=== PATIENT | male | born 1990 | race African-American/Black ===

== ENCOUNTER 2019-02-02 16:47 | Emergency (ER) | payer OTHER ==
--- NOTE | 2019-02-02 18:59 | ER ---
Nurse's Notes [facility] Name: Sekou Adkins Age: 28 yrs Sex: Male : 1990 Arrival Date: 02/02/2019 Time: 16:49 Bed 28 Private MD: Diagnosis: Inhalation of paint fumes Presentation: 02/02 16:55 Presenting complaint: Patient states: I was spray painting in a garage with the door sg half opened, while wearing a mask designed for painting, I now have pressure in my forehead and pain when swallowing, I also feel very jittery, denies N/V/D/Fever at this time. Transition of care: patient was not received from another setting of care. Onset of symptoms was February 02, 2019. Risk Assessment: Do you want to hurt yourself or someone else? Patient reports no desire to harm self or others. Initial Sepsis Screen: Does the patient meet any 2 criteria? HR > 90 bpm. Does the patient have a suspected source of infection? No. Patient's initial sepsis screen is negative. Care prior to arrival: None. 16:55 Method Of Arrival: Ambulatory sg 16:55 Acuity: MAYLIN 3 sg Triage Assessment: 16:56 General: Appears in no apparent distress. well groomed, well developed, well nourished, sg Behavior is calm, cooperative, appropriate for age. Pain: Complains of pain in headache and sore throat that worsens with swallowing. Respiratory: Reports no symptoms reported at this time Airway is patent Respiratory effort is even, unlabored, Respiratory pattern is regular, symmetrical, Onset: The symptoms/episode began/occurred gradually, the patient has mild shortness of breath. Historical: - Allergies: 16:52 No Known Allergies; sg - PMHx: 16:52 Migraines; sg - PSHx: 16:52 None; sg - Immunization history:: Adult Immunizations up to date. - Social history:: Smoking status: Patient uses tobacco products, denies chronic smoking, but will smoke occasionally. - Ebola Screening: : Patient negative for fever greater than or equal to 101.5 degrees Fahrenheit, and additional compatible Ebola Virus Disease symptoms Patient denies exposure to infectious person Patient denies travel to an Ebola-affected area in the 21 days before illness onset No symptoms or risks identified at this time. Screenin:14 Abuse screen: Denies threats or abuse. Nutritional screening: No deficits noted. la1 Tuberculosis screening: No symptoms or risk factors identified. Fall Risk None identified. Assessment: 17:15 General: Appears in no apparent distress. Behavior is calm, cooperative. Pain: Denies la1 pain. Neuro: Level of Consciousness is awake, alert, obeys commands, Oriented to person, place, time, situation. Cardiovascular: Rhythm is regular. Respiratory: Airway is patent Respiratory effort is even, unlabored, Respiratory pattern is regular, symmetrical, Breath sounds are clear bilaterally. GI: No signs and/or symptoms were reported involving the gastrointestinal system. : No signs and/or symptoms were reported regarding the genitourinary system. 19:10 Reassessment: Patient appears in no apparent distress at this time. No changes from la1 previously documented assessment. Patient and/or family updated on plan of care and expected duration. Pain level reassessed. Patient is alert, oriented x 3, equal unlabored respirations, skin warm/dry/pink. Vital Signs: 16:52 BP 153 / 92; Pulse 113; Resp 18; Temp 97.2; Pulse Ox 100% on R/A; Weight 86.18 kg; sg Height 5 ft. 11 in. (180.34 cm); Pain 7/10; 18:51 BP 109 / 62; Pulse 102 RA; Pulse Ox 100% ; jp3 16:52 Body Mass Index 26.50 (86.18 kg, 180.34 cm) ED Course: 16:49 Patient arrived in ED. as 16:52 Arm band placed on. sg 16:56 Triage completed. sg 17:08 Jake Olivera, GINGER is Primary Nurse. la1 17:11 Cheo Parker NP is PHCP. pm1 17:11 Rell Kat MD is Attending Physician. pm1 17:15 Call light in reach. la1 19:10 No provider procedures requiring assistance completed. Patient did not have IV access la1 during this emergency room visit. Administered Medications: 19:09 Drug: Tylenol 1000 mg Route: PO; la1 Outcome: 18:58 Discharge ordered by . pm1 19:10 Discharged to home ambulatory. la1 19:10 Condition: stable 19:10 Discharge instructions given to patient, Instructed on discharge instructions, follow up and referral plans. medication usage, Demonstrated understanding of instructions, follow-up care. 19:11 Patient left the ED. la1 Signatures: Jerel Madrigal, RN RN sg Tory Rawls Lee, RN RN la1 Cheo Parker, AUXILIARY ENGINEER AUXILIARY ENGINEER pm1 Miguel Moss jp3
--- NOTE | 2019-02-02 18:59 | EDPHYS ---
Physician Documentation [facility] Name: Sekou Adkins Age: 28 yrs Sex: Male : 1990 Arrival Date: 02/02/2019 Time: 16:49 Bed 28 Private MD: ED Physician Rell Kat HPI: 02/02 18:54 This 28 yrs old Black Male presents to ER via Ambulatory with complaints of Chemical pm1 Inhalation. 18:54 The patient or guardian reports difficulty breathing. Onset: The symptoms/episode pm1 began/occurred today, at 15:00. Modifying factors: The symptoms are alleviated by nothing. the symptoms are aggravated by nothing. Associated signs and symptoms: Pertinent negatives: chest pain, ear ache, fever, nausea, rhinorrhea, sore throat, vomiting. Severity of symptoms: in the emergency department the symptoms are unchanged. The patient has not experienced similar symptoms in the past. The patient has not recently seen a physician. Patient was spray painting his car in his garage from 10 AM to 3 PM with a dust mask. Patient reports onset of shortness of breath after he finished painting his car. Historical: - Allergies: 16:52 No Known Allergies; sg - PMHx: 16:52 Migraines; sg - PSHx: 16:52 None; sg - Immunization history:: Adult Immunizations up to date. - Social history:: Smoking status: Patient uses tobacco products, denies chronic smoking, but will smoke occasionally. - Ebola Screening: : Patient negative for fever greater than or equal to 101.5 degrees Fahrenheit, and additional compatible Ebola Virus Disease symptoms Patient denies exposure to infectious person Patient denies travel to an Ebola-affected area in the 21 days before illness onset No symptoms or risks identified at this time. ROS: 18:54 Constitutional: Negative for fever, chills, and weight loss, Eyes: Negative for injury, pm1 pain, redness, and discharge, ENT: Negative for injury, pain, and discharge, Neck: Negative for injury, pain, and swelling, Cardiovascular: Negative for chest pain, palpitations, and edema. 18:54 Abdomen/GI: Negative for abdominal pain, nausea, vomiting, diarrhea, and constipation, Back: Negative for injury and pain, : Negative for injury, bleeding, discharge, and swelling, MS/Extremity: Negative for injury and deformity, Skin: Negative for injury, rash, and discoloration, Neuro: Negative for headache, weakness, numbness, tingling, and seizure. 18:54 Respiratory: Positive for shortness of breath, Negative for cough, wheezing. Exam: 18:54 Constitutional: This is a well developed, well nourished patient who is awake, alert, pm1 and in no acute distress. Head/Face: Normocephalic, atraumatic. Eyes: Pupils equal round and reactive to light, extra-ocular motions intact. Lids and lashes normal. Conjunctiva and sclera are non-icteric and not injected. Cornea within normal limits. Periorbital areas with no swelling, redness, or edema. ENT: Nares patent. No nasal discharge, no septal abnormalities noted. Tympanic membranes are normal and external auditory canals are clear. Oropharynx with no redness, swelling, or masses, exudates, or evidence of obstruction, uvula midline. Mucous membranes moist. Neck: Trachea midline, no thyromegaly or masses palpated, and no cervical lymphadenopathy. Supple, full range of motion without nuchal rigidity, or vertebral point tenderness. No Meningismus. Chest/axilla: Normal chest wall appearance and motion. Nontender with no deformity. No lesions are appreciated. Cardiovascular: Regular rate and rhythm with a normal S1 and S2. No gallops, murmurs, or rubs. Normal PMI, no JVD. No pulse deficits. Respiratory: Lungs have equal breath sounds bilaterally, clear to auscultation and percussion. No rales, rhonchi or wheezes noted. No increased work of breathing, no retractions or nasal flaring. Abdomen/GI: Soft, non-tender, with normal bowel sounds. No distension or tympany. No guarding or rebound. No evidence of tenderness throughout. Back: No spinal tenderness. No costovertebral tenderness. Full range of motion. Skin: Warm, dry with normal turgor. Normal color with no rashes, no lesions, and no evidence of cellulitis. MS/ Extremity: Pulses equal, no cyanosis. Neurovascular intact. Full, normal range of motion. 18:54 Neuro: Orientation: is normal, Motor: is normal, moves all fours, Gait: is steady, at a normal pace, without difficulty. Vital Signs: 16:52 BP 153 / 92; Pulse 113; Resp 18; Temp 97.2; Pulse Ox 100% on R/A; Weight 86.18 kg; sg Height 5 ft. 11 in. (180.34 cm); Pain 7/10; 18:51 BP 109 / 62; Pulse 102 RA; Pulse Ox 100% ; jp3 16:52 Body Mass Index 26.50 (86.18 kg, 180.34 cm) MDM: 17:11 Patient medically screened. pm1 18:54 Data reviewed: vital signs. Data interpreted: Pulse oximetry: on room air is 100 %. pm1 Interpretation: normal. Counseling: I had a detailed discussion with the patient and/or guardian regarding: the historical points, exam findings, and any diagnostic results supporting the discharge/admit diagnosis, the need for outpatient follow up, to return to the emergency department if symptoms worsen or persist or if there are any questions or concerns that arise at home. Administered Medications: 19:09 Drug: Tylenol 1000 mg Route: PO; la1 Disposition: 02/02/19 18:58 Discharged to Home. Impression: Inhalation of paint fumes. - Condition is Stable. - Medication Reconciliation Form, Thank You Letter, Antibiotic Education, Prescription Opioid Use, Work release form form. - Follow up: Emergency Department; When: As needed; Reason: Worsening of condition. Follow up: Private Physician; When: 2 - 3 days; Reason: Recheck today's complaints, Continuance of care, Re-evaluation by your physician. - Problem is new. - Symptoms have improved. Addendum: 02/05/2019 19:17 Co-signature as Attending Physician, Rell Kat MD. r n Signatures: Jerel Madrigal RN RN Rell Kat MD MD rn Attema, Lee, RN RN la1 Cheo Parker NP SETTER UP pm1 Corrections: (The following items were deleted from the chart) 02/02 19:11 18:58 02/02/2019 18:58 Discharged to Home. Impression: Inhalation of paint fumes. la1 Condition is Stable. Forms are Medication Reconciliation Form, Thank You Letter, Antibiotic Education, Prescription Opioid Use. Follow up: Emergency Department; When: As needed; Reason: Worsening of condition. Follow up: Private Physician; When: 2 - 3 days; Reason: Recheck today's complaints, Continuance of care, Re-evaluation by your physician. Problem is new. Symptoms have improved. pm1
[2019-02-02] MEDS ORDERED: ACETAMINOPHEN 500 MG TAB ONE (19:16)
== END 2019-02-02 19:11 | disposition home or self-care (01) ==
LOC: ER 16:47
DX: T59.891A Toxic effect of other specified gases, fumes and vapors, accidental (unintentional), initial encounter (principal); Y92.89 Other specified places as the place of occurrence of the external cause; Z72.0 Tobacco use
CPT/HCPCS: 99283

== ENCOUNTER 2019-02-04 17:38 | Emergency (ER) | payer OTHER ==
[2019-02-04 18:30] LABS: Absolute Lymphocytes (CBC) 1.1 K/uL (0.7-4.9); Absolute Monocytes 0.7 K/uL (0.1-1.3); Basophils % 0.6 % (0-1.3); Eosinophils % 2.2 % (0-4.4); Hematocrit 46.3 % (39.6-49.0); Lymphocytes % 22.3 % (15.3-44.8); MPV 8.1 fL (7.6-11.3); Monocytes % 13.5 % (3.3-12.3); RBC Red Blood Cell Count 5.26 M/uL (4.33-5.43)
[2019-02-04 18:59] LABS: ALT/SGPT 28 U/L (12-78); AST/SGOT 20 U/L (15-37); Albumin 3.7 g/dL (3.4-5.0); Alkaline Phosphatase 67 U/L (45-117); BUN Blood Urea Nitrogen 15 mg/dL (7-18); Bicarbonate 34 mmol/L (21-32); Bilirubin Direct 0.1 mg/dL (0-0.2); Bilirubin Total 0.4 mg/dL (0.2-1.0); Glucose Level 91 mg/dL (74-106); Lipase 97 U/L (73-393); Potassium 3.9 mmol/L (3.5-5.1); Protein, Total 7.4 g/dL (6.4-8.2); Sodium Level 143 mmol/L (136-145)
[2019-02-04 19:17] LABS: Urine Blood 2+ (NEG); Urine Glucose NEGATIVE (NEG); Urine Protein TRACE (NEG); Urine Specific Gravity 1.025 (1.005-1.030)
--- NOTE | 2019-02-04 19:24 | ER ---
Nurse's Notes [facility] Name: Sekou Adkins Age: 28 yrs Sex: Male : 1990 Arrival Date: 02/04/2019 Time: 17:41 Bed 20 Private MD: Diagnosis: Hematuria, unspecified;Acute upper respiratory infection, unspecified Presentation: 02/04 17:44 Presenting complaint: Patient states: hematuria x 2 days, sore throat "It's red back sv there." Seen here Sunday for inhaling paint fumes from painting his car and had a mask on. Pt f/u with MD and they sent him here. Transition of care: patient was not received from another setting of care. Onset of symptoms was February 02, 2019. Care prior to arrival: None. 17:44 Method Of Arrival: Ambulatory sv 17:44 Acuity: MAYLIN 3 sv Historical: - Allergies: 17:45 No Known Allergies; sv - PMHx: 17:45 Migraines; sv - PSHx: 17:45 None; sv - Immunization history:: Adult Immunizations unknown. - Social history:: Patient/guardian denies using alcohol, street drugs, The patient lives with family, Smoking status: unknown. - Family history:: not pertinent. Screenin:00 Abuse screen: Denies threats or abuse. Denies injuries from another. Nutritional jl7 screening: No deficits noted. Tuberculosis screening: No symptoms or risk factors identified. Fall Risk None identified. Assessment: 18:00 General: Appears in no apparent distress. uncomfortable, Behavior is calm, cooperative, jl7 appropriate for age. Pain: Complains of pain in sore throat Pain currently is 7 out of 10 on a pain scale. Neuro: Level of Consciousness is awake, alert, obeys commands, Oriented to person, place, time, situation. Cardiovascular: Patient's skin is warm and dry. Respiratory: Airway is patent Respiratory effort is even, unlabored, Breath sounds are clear bilaterally. : Reports blood in urine. EENT: Throat is reddened has enlarged tonsils bilaterally. Derm: Skin is pink, warm \\T\\ dry. 19:34 Reassessment: Patient appears in no apparent distress at this time. No changes from ed1 previously documented assessment. Patient and/or family updated on plan of care and expected duration. Pain level reassessed. Patient is alert, oriented x 3, equal unlabored respirations, skin warm/dry/pink. Patient states symptoms have not improved. Vital Signs: 17:45 BP 118 / 64; Pulse 82; Resp 18; Pulse Ox 99% ; Weight 86.18 kg; Height 5 ft. 11 in. sv (180.34 cm); Pain 0/10; 19:34 BP 112 / 62; Pulse 73; Resp 17; Temp 97.4(O); Pulse Ox 99% on R/A; Pain 0/10; ed1 17:45 Body Mass Index 26.50 (86.18 kg, 180.34 cm) ED Course: 17:41 Patient arrived in ED. mr 17:45 Triage completed. 17:46 Arm band placed on. 17:52 Mariam Gallagher RN is Primary Nurse. [facility] 17:54 Gustavo Fierro MD is Attending Physician. [facility] 18:06 Flu and/or RSV swab sent to lab. Strep swab sent to lab. [facility] 18:07 Patient has correct armband on for positive identification. Bed in low position. Call [facility] light in reach. Pulse ox on. NIBP on. 18:07 Influenza Screen (a \\T\\ B) Sent. [facility] 18:07 Strep Sent. [facility] 18:15 Initial lab(s) drawn, by mn, sent to lab. Inserted saline lock: 20 gauge in right jl7 antecubital area, using aseptic technique. Blood collected. 19:11 Urine collected: clean catch specimen, clear. 5 19:34 No provider procedures requiring assistance completed. IV discontinued, intact, ed1 bleeding controlled, No redness/swelling at site. Pressure dressing applied. Administered Medications: No medications were administered Outcome: 19:24 Discharge ordered by . mo2 19:34 Discharged to home ambulatory. ed1 19:34 Condition: good 19:34 Discharge instructions given to patient, Instructed on discharge instructions, follow up and referral plans. medication usage, Demonstrated understanding of instructions, follow-up care, medications, Prescriptions given X 1. 19:35 Patient left the ED. ed1 Signatures: Kayla Nichols RN RN Janessa SimmsZee RN RN ed1 Lluvia Rawls [facility] Mariam Gallagher RN RN [facility] Alzahri, Mohammad, MD MD ma2
--- NOTE | 2019-02-04 19:24 | EDPHYS ---
Physician Documentation [facility] Name: Sekou Adkins Age: 28 yrs Sex: Male : 1990 Arrival Date: 02/04/2019 Time: 17:41 Bed 20 Private MD: ED Physician Gustavo Fierro HPI: 02/04 18:42 This 28 yrs old Black Male presents to ER via Ambulatory with complaints of Sore ma2 Throat, Urinary Problem. 18:42 The patient presents with sore throat. Onset: The symptoms/episode began/occurred ma2 gradually, 2 day(s) ago. Severity of symptoms: At their worst the symptoms were moderate, in the emergency department the symptoms are unchanged. Associated signs and symptoms: Pertinent positives: Sore throat Pertinent negatives chest pain, cough, diarrhea. The patient has not experienced similar symptoms in the past. Historical: - Allergies: 17:45 No Known Allergies; sv - PMHx: 17:45 Migraines; sv - PSHx: 17:45 None; sv - Immunization history:: Adult Immunizations unknown. - Social history:: Patient/guardian denies using alcohol, street drugs, The patient lives with family, Smoking status: unknown. - Family history:: not pertinent. ROS: 18:42 Constitutional: Negative for fever, chills, and weight loss. ma2 18:42 ENT: Positive for sore throat, Negative for foreign body sensation, hearing loss, pulling at ears, tinnitus, dental pain, hoarseness, acute changes. 18:42 : Positive for hematuria, Negative for injury or acute deformity, urinary symptoms, urinary frequency, small amounts, pelvic pain, flank pain, burning with urination, difficulty urinating, bladder incontinence, foul smelling urine, penile discharge, penile pain, testicular pain acute changes. 18:42 All other systems are negative. Exam: 18:42 Constitutional: This is a well developed, well nourished patient who is awake, alert, ma2 and in no acute distress. Head/Face: Normocephalic, atraumatic. Eyes: Pupils equal round and reactive to light, extra-ocular motions intact. Lids and lashes normal. Conjunctiva and sclera are non-icteric and not injected. Cornea within normal limits. Periorbital areas with no swelling, redness, or edema. Chest/axilla: Normal chest wall appearance and motion. Nontender with no deformity. No lesions are appreciated. Cardiovascular: Regular rate and rhythm with a normal S1 and S2. No gallops, murmurs, or rubs. Normal PMI, no JVD. No pulse deficits. Respiratory: Lungs have equal breath sounds bilaterally, clear to auscultation and percussion. No rales, rhonchi or wheezes noted. No increased work of breathing, no retractions or nasal flaring. Abdomen/GI: Soft, non-tender, with normal bowel sounds. No distension or tympany. No guarding or rebound. No evidence of tenderness throughout. Back: No spinal tenderness. No costovertebral tenderness. Full range of motion. Skin: Warm, dry with normal turgor. Normal color with no rashes, no lesions, and no evidence of cellulitis. MS/ Extremity: Pulses equal, no cyanosis. Neurovascular intact. Full, normal range of motion. Neuro: Awake and alert, GCS 15, oriented to person, place, time, and situation. Cranial nerves II-XII grossly intact. Motor strength 5/5 in all extremities. Sensory grossly intact. Cerebellar exam normal. Normal gait. 18:42 ENT: Posterior pharynx: Airway: normal, Tonsils: bilaterally enlarged, with erythema, no exudate, no ulcerations, swelling, that is mild, peritonsillar mass, is not appreciated, pooling of secretions, is not appreciated. Vital Signs: 17:45 BP 118 / 64; Pulse 82; Resp 18; Pulse Ox 99% ; Weight 86.18 kg; Height 5 ft. 11 in. sv (180.34 cm); Pain 0/10; 19:34 BP 112 / 62; Pulse 73; Resp 17; Temp 97.4(O); Pulse Ox 99% on R/A; Pain 0/10; ed1 17:45 Body Mass Index 26.50 (86.18 kg, 180.34 cm) sv MDM: 17:54 Patient medically screened. [facility] 18:42 Differential diagnosis: smoke inhalation, tonsillitis, upper respiratory infection, ma2 viral syndrome. 19:23 Data reviewed: vital signs, nurses notes. Counseling: I had a detailed discussion with ma2 the patient and/or guardian regarding: the historical points, exam findings, and any diagnostic results supporting the discharge/admit diagnosis, the presence of at least one elevated blood pressure reading (>120/80) during this emergency department visit, the need for outpatient follow up. 02/04 17:54 Order name: Strep; Complete Time: 18:28 [facility] 02/04 17:54 Order name: Influenza Screen (a \T\ B); Complete Time: 19:19 [facility] 02/04 18:11 Order name: Basic Metabolic Panel; Complete Time: 19:19 [facility] 02/04 18:11 Order name: CBC with Diff; Complete Time: 19:19 [facility] 02/04 18:11 Order name: Creatinine for Radiology; Complete Time: 19:19 [facility] 02/04 18:11 Order name: Hepatic Function; Complete Time: 19:19 [facility] 02/04 17:54 Order name: Urine Dipstick-Ancillary (obtain specimen); Complete Time: 19:11 [facility] 02/04 18:11 Order name: Lipase; Complete Time: 19:19 [facility] 02/04 18:11 Order name: IV Saline Lock; Complete Time: 18:57 [facility] 02/04 18:11 Order name: Labs collected and sent; Complete Time: 18:57 [facility] 02/04 18:24 Order name: Throat Culture [facility] 02/04 19:13 Order name: Urine Dipstick--Ancillary (enter results); Complete Time: 19:19 2 Administered Medications: No medications were administered Disposition: 02/04/19 19:24 Discharged to Home. Impression: Hematuria, unspecified, Acute upper respiratory infection, unspecified. - Condition is Stable. - Discharge Instructions: Hematuria, Adult, Upper Respiratory Infection, Adult. - Prescriptions for Tylenol- Codeine #3 300-30 mg Oral Tablet - take 2 tablet by ORAL route every 6 hours As needed; 30 tablet. - Medication Reconciliation Form, Thank You Letter, Antibiotic Education, Prescription Opioid Use form. - Follow up: Private Physician; When: Tomorrow; Reason: Continuance of care. Signatures: Dispatcher [employer] [facility] Kayla Nichols RN RN sv Riggs, Erika, RN RN ed1 Mariam Gallagher RN RN jl7 Gustavo Fierro MD MD hi2 Corrections: (The following items were deleted from the chart) 19:35 19:24 02/04/2019 19:24 Discharged to Home. Impression: Hematuria, unspecified; Acute ed1 upper respiratory infection, unspecified. Condition is Stable. Forms are Medication Reconciliation Form, Thank You Letter, Antibiotic Education, Prescription Opioid Use. Follow up: Private Physician; When: Tomorrow; Reason: Continuance of care. ma2
== END 2019-02-04 19:35 | disposition home or self-care (01) ==
LOC: ER 17:38
DX: J06.9 Acute upper respiratory infection, unspecified (principal); R31.9 Hematuria, unspecified
CPT/HCPCS: 36415; 80048; 80076; 81003; 83690; 85025; 87070; 87081; 87804; 99284

== ENCOUNTER 2019-05-30 11:05 | Emergency (ER) | payer OTHER ==
[2019-05-30 11:57] LABS: Absolute Lymphocytes (CBC) 1.2 K/uL (0.7-4.9); Basophils % 0.5 % (0-1.3); Eosinophils % 3.1 % (0-4.4); Hematocrit 48.7 % (39.6-49.0); Lymphocytes % 19.4 % (15.3-44.8); MPV 8.7 fL (7.6-11.3); Monocytes % 8.8 % (3.3-12.3); RBC Red Blood Cell Count 5.47 M/uL (4.33-5.43)
[2019-05-30 12:23] LABS: BUN Blood Urea Nitrogen 14 mg/dL (7-18); Bicarbonate 26 mmol/L (21-32); Creatine Phosphokinase 152 U/L (39-308); Glucose Level 81 mg/dL (74-106); Sodium Level 143 mmol/L (136-145)
--- NOTE | 2019-05-30 12:45 | EDPHYS ---
Physician Documentation [facility] Name: Sekou Adkins Age: 28 yrs Sex: Male : 1990 Arrival Date: 05/30/2019 Time: 11:11 Bed 18 Private MD: ED Physician Rell Kat HPI: 05/30 11:19 This 28 yrs old Black Male presents to ER via EMS with complaints of Syncope. snw 11:19 The patient has experienced near-syncope, almost passed out, felt dizzy, felt faint, snw felt generally weak, felt like heart was pounding. Onset: The symptoms/episode began/occurred suddenly, post mowing at [place] for the [facility]. Drinking Tea, felt panicky and so took a break to smoke. Became nauseated, dizzy, saw lights, and knees became rubbery. Pt sat and coworkers called EMS. Duration: This was a single episode, that lasted an unknown period of time. Context: occurred at work, occurred while the patient was working. Associated injury: The patient did not suffer any apparent associated injury. Associated signs and symptoms: Pertinent positives: diaphoresis, dizziness, gait abnormality, lightheadedness, nausea, palpitations, weakness. Current symptoms: Currently, the patient is not experiencing any symptoms, the patient feels back to baseline. The patient has not experienced similar symptoms in the past. It is unknown whether or not the patient has recently seen a physician. EMS cooled pt and started IVF. No other interventions needed and pt began improving rapidly. Historical: - Allergies: 11:18 Tylenol-Codeine #3; ae4 - Home Meds: 11:18 None [Active]; ae4 - PMHx: 11:18 Migraines; Anxiety; ae4 - PSHx: 11:18 None; ae4 - Immunization history:: Adult Immunizations up to date, Flu vaccine is not up to date. - Social history:: Smoking status: Patient uses tobacco products, smokes one-half pack cigarettes per day. - Ebola Screening: : Patient denies travel to an Ebola-affected area in the 21 days before illness onset No symptoms or risks identified at this time. ROS: 11:15 Eyes: Negative for injury, pain, redness, and discharge, ENT: Negative for injury, snw pain, and discharge, Neck: Negative for injury, pain, and swelling, Cardiovascular: Negative for chest pain, palpitations, and edema, Respiratory: Negative for shortness of breath, cough, wheezing, and pleuritic chest pain. 11:15 Back: Negative for injury and pain, : Negative for injury, bleeding, discharge, and swelling, MS/Extremity: Negative for injury and deformity, Skin: Negative for injury, rash, and discoloration. 11:15 Constitutional: Positive for rubbery legs, nausea, and seeing lights prior feeling like he was going to pass out. 11:15 Abdomen/GI: Positive for nausea. 11:15 Neuro: Positive for dizziness. Exam: 11:15 Constitutional: This is a well developed, well nourished patient who is awake, alert, snw and in no acute distress. Head/Face: Normocephalic, atraumatic. Eyes: Pupils equal round and reactive to light, extra-ocular motions intact. Lids and lashes normal. Conjunctiva and sclera are non-icteric and not injected. Cornea within normal limits. Periorbital areas with no swelling, redness, or edema. ENT: Nares patent. No nasal discharge, no septal abnormalities noted. Tympanic membranes are normal and external auditory canals are clear. Oropharynx with no redness, swelling, or masses, exudates, or evidence of obstruction, uvula midline. Mucous membranes moist. Neck: Trachea midline, no thyromegaly or masses palpated, and no cervical lymphadenopathy. Supple, full range of motion without nuchal rigidity, or vertebral point tenderness. No Meningismus. Chest/axilla: Normal chest wall appearance and motion. Nontender with no deformity. No lesions are appreciated. Cardiovascular: Regular rate and rhythm with a normal S1 and S2. No gallops, murmurs, or rubs. Normal PMI, no JVD. No pulse deficits. Respiratory: Lungs have equal breath sounds bilaterally, clear to auscultation and percussion. No rales, rhonchi or wheezes noted. No increased work of breathing, no retractions or nasal flaring. Abdomen/GI: Soft, non-tender, with normal bowel sounds. No distension or tympany. No guarding or rebound. No evidence of tenderness throughout. Back: No spinal tenderness. No costovertebral tenderness. Full range of motion. MS/ Extremity: Pulses equal, no cyanosis. Neurovascular intact. Full, normal range of motion. Neuro: Awake and alert, GCS 15, oriented to person, place, time, and situation. Cranial nerves II-XII grossly intact. Motor strength 5/5 in all extremities. Sensory grossly intact. Cerebellar exam normal. Normal gait. 11:15 Psych: Awake, alert, with orientation to person, place and time. Behavior, mood, and affect are within normal limits. 11:15 Skin: Appearance: Color: normal in color, no profuse diaphoresis reported at scene or currently. Vital Signs: 11:18 BP 127 / 75; Pulse 73; Resp 15; Temp 98.4(O); Pulse Ox 98% on R/A; Weight 97.52 kg; ae4 Pain 0/10; 11:46 BP 155 / 74; Pulse 58; Resp 14; Temp 98.6(O); Pulse Ox 100% on R/A; tw2 12:54 BP 118 / 67; Pulse 63; Resp 17; Temp 98.4(TE); Pulse Ox 100% on R/A; tw2 MDM: 11:15 Patient medically screened. snw 12:46 ECG was reviewed by the Attending Physician. Data reviewed: vital signs, nurses notes. snw Data interpreted: Pulse oximetry: on room air is 100 %. Interpretation: normal. Counseling: I had a detailed discussion with the patient and/or guardian regarding: the historical points, exam findings, and any diagnostic results supporting the discharge/admit diagnosis, the presence of at least one elevated blood pressure reading (>120/80) during this emergency department visit, lab results, the need for outpatient follow up, to return to the emergency department if symptoms worsen or persist or if there are any questions or concerns that arise at home. Response to treatment: the patient's symptoms have markedly improved after treatment, the patient's symptoms have resolved after treatment, the patient's condition has returned to base line. 12:47 Special discussion: I have referred the patient to see his PCP for further evaluation snw of high blood pressure. Based on the history and exam findings, there is no indication for further emergent testing or inpatient evaluation. I discussed with the patient/guardian the need to see the primary care provider for further evaluation of the symptoms. 05/30 11:36 Order name: CBC with Manual Differential snw 05/30 11:36 Order name: Chem 7; Complete Time: 12:30 snw 05/30 11:36 Order name: EKG; Complete Time: 11:36 snw 05/30 11:36 Order name: CPK; Complete Time: 12:30 snw 05/30 11:37 Order name: EKG - Nurse/Tech; Complete Time: 11:43 tw2 05/30 11:37 Order name: Misc. Order: please bolus NS started per EMS; Complete Time: 11:43 snw Administered Medications: No medications were administered Disposition: 15:05 Co-signature as Attending Physician, Rell Kat MD. rn Disposition: 05/30/19 12:44 Discharged to Home. Impression: Heat fatigue, transient. - Condition is Stable. - Discharge Instructions: Steps to Quit Smoking, Smoking Hazards, Heat Exhaustion Information, Rehydration, Adult. - Work release form, Medication Reconciliation Form, Thank You Letter, Antibiotic Education, Prescription Opioid Use form. - Follow up: Emergency Department; When: As needed; Reason: Worsening of condition. Follow up: Private Physician; When: 2 - 3 days; Reason: Recheck today's complaints, Continuance of care, Re-evaluation by your physician. Signatures: Dispatcher [employer] [facility] Louann Robledo, WOOD MACHINIST APPRENTICE-C WOOD MACHINIST APPRENTICE-Csnw Rell Kat MD MD rn Columba Olson RN RN tw2 Harpreet Abdi, GINGER RN ae4 Corrections: (The following items were deleted from the chart) 11:40 11:38 BASIC METABOLIC PANEL+C.LAB.BRZ ordered. [facility] EDSC 11:43 11:36 EKG - Nurse/Tech ordered. [facility] tw2 12:19 11:38 CREATINE PHOSPHOKINASE+C.LAB.BRZ ordered. [facility] EDSC 13:07 12:44 05/30/2019 12:44 Discharged to Home. Impression: Heat fatigue, transient. tw2 Condition is Stable. Forms are Medication Reconciliation Form, Thank You Letter, Antibiotic Education, Prescription Opioid Use. Follow up: Emergency Department; When: As needed; Reason: Worsening of condition. Follow up: Private Physician; When: 2 - 3 days; Reason: Recheck today's complaints, Continuance of care, Re-evaluation by your physician. snw
--- NOTE | 2019-05-30 12:45 | ER ---
Nurse's Notes [facility] Name: Sekou Adkins Age: 28 yrs Sex: Male : 1990 Arrival Date: 05/30/2019 Time: 11:11 Bed 18 Private MD: Diagnosis: Heat fatigue, transient Presentation: 05/30 11:13 Presenting complaint: EMS states: EMS states patient was mowing in the heat, started to ae4 feel chests tightness, when he went to sit down and smoke a cigarette to "help calm his nerves" When patient went to stand up " My legs felt like jello.". Transition of care: patient was not received from another setting of care. Onset of symptoms was May 30, 2019 at 10:30. Risk Assessment: Do you want to hurt yourself or someone else? Patient reports no desire to harm self or others. Initial Sepsis Screen: Does the patient meet any 2 criteria? No. Patient's initial sepsis screen is negative. Does the patient have a suspected source of infection?. Care prior to arrival: IV initiated. 22 GA, in the right hand. 11:13 Method Of Arrival: EMS: [facility] ae4 11:13 Acuity: MAYLIN 3 ae4 11:16 Transition of care: patient was not received from another setting of care. Onset of tw2 symptoms was May 30, 2019. Risk Assessment: Do you want to hurt yourself or someone else? Patient reports no desire to harm self or others. Initial Sepsis Screen: Does the patient meet any 2 criteria? No. Patient's initial sepsis screen is negative. Does the patient have a suspected source of infection? No. Patient's initial sepsis screen is negative. Care prior to arrival: Medication(s) given: Normal saline infusion, 200 ml NS IV initiated. 20 GA, in the right hand. 11:16 Method Of Arrival: EMS: [facility] tw2 Triage Assessment: 11:19 General: Appears in no apparent distress. comfortable, Behavior is calm, cooperative, ae4 appropriate for age. General: Patient denies chest tightness at this time. . Pain: Denies pain. EENT: No signs and/or symptoms were reported regarding the EENT system. Neuro: Level of Consciousness is awake, alert, obeys commands, Oriented to person, place, time, situation, Appropriate for age Reports Patient felt chest tightness, feeling lightheaded and saw "little white stars". Respiratory: Airway is patent Respiratory effort is even, unlabored, Respiratory pattern is regular, symmetrical. Derm: Skin is normal. 11:19 Derm: Clubbing of all fingernails. ae4 Historical: - Allergies: 11:18 Tylenol-Codeine #3; ae4 - Home Meds: 11:18 None [Active]; ae4 - PMHx: 11:18 Migraines; Anxiety; ae4 - PSHx: 11:18 None; ae4 - Immunization history:: Adult Immunizations up to date, Flu vaccine is not up to date. - Social history:: Smoking status: Patient uses tobacco products, smokes one-half pack cigarettes per day. - Ebola Screening: : Patient denies travel to an Ebola-affected area in the 21 days before illness onset No symptoms or risks identified at this time. Screenin:14 Abuse screen: Denies threats or abuse. Nutritional screening: No deficits noted. tw2 Tuberculosis screening: No symptoms or risk factors identified. Fall Risk None identified. Assessment: 11:14 Pain: Denies pain. Neuro: Level of Consciousness is awake, alert, obeys commands, tw2 Oriented to person, place, time, situation. Cardiovascular: Heart tones S1 S2 Capillary refill < 3 seconds Patient's skin is warm and dry. Rhythm is sinus rhythm. Respiratory: Airway is patent Respiratory effort is even, unlabored, Respiratory pattern is regular, symmetrical, Breath sounds are clear bilaterally. GI: Abdomen is flat, Bowel sounds present X 4 quads. : No signs and/or symptoms were reported regarding the genitourinary system. EENT: No signs and/or symptoms were reported regarding the EENT system. Derm: No signs and/or symptoms reported regarding the dermatologic system. Skin is intact, is healthy with good turgor, Skin is clammy. Musculoskeletal: Range of motion: intact in all extremities. 11:16 General: Appears in no apparent distress. Behavior is calm, cooperative, appropriate tw2 for age. 11:48 Reassessment: Patient appears in no apparent distress at this time. No changes from tw2 previously documented assessment. Patient and/or family updated on plan of care and expected duration. Pain level reassessed. Patient is alert, oriented x 3, equal unlabored respirations, skin warm/dry/pink. 12:22 Reassessment: Patient appears in no apparent distress at this time. Patient updated on ae4 plan of care, awaiting lab results. Patient denies pain at this time. Patient states feeling better. 12:55 Reassessment: Patient appears in no apparent distress at this time. No changes from tw2 previously documented assessment. Patient and/or family updated on plan of care and expected duration. Pain level reassessed. Patient is alert, oriented x 3, equal unlabored respirations, skin warm/dry/pink. 13:07 Reassessment: Patient appears in no apparent distress at this time. No changes from tw2 previously documented assessment. Patient and/or family updated on plan of care and expected duration. Pain level reassessed. Patient is alert, oriented x 3, equal unlabored respirations, skin warm/dry/pink. Vital Signs: 11:18 BP 127 / 75; Pulse 73; Resp 15; Temp 98.4(O); Pulse Ox 98% on R/A; Weight 97.52 kg; ae4 Pain 0/10; 11:46 BP 155 / 74; Pulse 58; Resp 14; Temp 98.6(O); Pulse Ox 100% on R/A; tw2 12:54 BP 118 / 67; Pulse 63; Resp 17; Temp 98.4(TE); Pulse Ox 100% on R/A; tw2 ED Course: 11:11 Patient arrived in ED. iw 11:11 Bed in low position. Call light in reach. Side rails up X2. alarm security or surveillance monitor on. Pulse tw2 ox on. NIBP on. 11:12 Columba Olson RN is Primary Nurse. tw2 11:14 Louann Robledo FNP-C is PHCP. snw 11:14 Arm band placed on. tw2 11:15 Rell Kat MD is Attending Physician. snw 11:17 Triage completed. ae4 11:44 Maintain EMS IV. Dressing intact. Good blood return noted. Site clean \\T\\ dry. Gauge \\T\\ tw 2 site: 20 g RIGHT hand. 11:46 EKG done, by mortuary technician. reviewed by Rell Kat MD. tc 13:06 No provider procedures requiring assistance completed. IV discontinued, intact, tw2 bleeding controlled, No redness/swelling at site. Pressure dressing applied. Administered Medications: No medications were administered Outcome: 12:44 Discharge ordered by MD. perales 13:06 Discharged to home ambulatory. tw2 13:06 Condition: stable 13:06 Discharge instructions given to patient, Instructed on discharge instructions, follow up and referral plans. Demonstrated understanding of instructions, follow-up care. 13:07 Patient left the ED. tw2 Signatures: Louann Robledo, WIRELESS TECHNICIAN-C WIRELESS TECHNICIAN-Csnw Dorinda Acuna, RN RN iw Ella Bashir, bundle tier and labeler EKG Ttc Columba Olson RN RN tw2 Harpreet Abdi RN RN ae4 Corrections: (The following items were deleted from the chart) 11:48 11:46 BP 155 / 74; Pulse 58bpm; Resp 14bpm; Pulse Ox 100% RA; tw2 tw2
[2019-05-30 13:12] LABS: Blood Morphology Comment NOT SEEN (NOT SEEN); Platelet Estimate ADEQ
--- NOTE | 2019-05-30 15:01 | EKG ---
Test Date: 2019-05-30 Test Time: 11:43:25 Automobile Rental Agent: ENRIQUE MEASUREMENT RESULTS: Intervals: Rate: 67 IA: 138 QRSD: 98 QT: 378 QTc: 399 [place]: P: 12 IA: 138 QRS: 22 T: 56 INTERPRETIVE STATEMENTS: Normal sinus rhythm Normal ECG No previous ECG available for comparison Electronically Signed On 05-30-19 15:00:33 CDT by Owen Singleton
== END 2019-05-30 13:07 | disposition home or self-care (01) ==
LOC: ER 11:05
DX: T67.6XXA Heat fatigue, transient, initial encounter (principal); X32.XXXA Exposure to sunlight, initial encounter; Y93.H2 Activity, gardening and landscaping; Y92.89 Other specified places as the place of occurrence of the external cause; Y99.0 Civilian activity done for income or pay; Z88.6 Allergy status to analgesic agent
CPT/HCPCS: 36415; 80048; 82550; 85025; 93005; 99284